=== PATIENT | female | born 1985 | race Caucasian/White ===

== ENCOUNTER 2018-03-02 10:50 | Day surgery (SDC) | payer OTHER ==
[~2018-03-02 10:50] MED LIST: Lactated Ringers 1,000 ML IV SCH; Lidocaine 2% 5 ML SDV ONE; Propofol 200 MG/20 ML SDV ONE
--- NOTE | 2018-03-02 11:17 | PCM.PREANE ---
Preanesthetic Assessment - Anesthesia/Transfusion/Family Hx Anesthesia History: Prior Anesthesia Without Reaction Family History of Anesthesia Reaction: No Transfusion History: No Prior Transfusion(s) Intubation History: Unknown - Review of Systems General: No Symptoms Pulmonary: No Symptoms Cardiovascular: No Symptoms Gastrointestinal: Abdominal Pain (epigastric), Other (IgG gliadin test positive) Neurological: No Symptoms Other: Reports: None - Physical Assessment Height: 1.6 m Weight: 62.142 kg ASA Class: 2 Mental Status: Alert & Oriented x3 Airway Class: Mallampati = 1 Dentition: Reports: Normal Dentition Thyro-Mental Finger Breadths: 3 Mouth Opening Finger Breadths: 3 ROM/Head Extension: Full Lungs: Clear to Auscultation, Normal Respiratory Effort Cardiovascular: Regular Rate, Regular Rhythm - Allergies Allergies/Adverse Reactions: Allergies Allergy/AdvReac Type Severity Reaction Status Date / Time codeine Allergy panic Verified 02/27/18 10:20 attacks - Blood Blood Available: No - Anesthesia Plan Pre-Op Medication Ordered: None - Acknowledgements Anesthesia Type Planned: MAC Pt an Appropriate Candidate for the Planned Anesthesia: Yes Alternatives and Risks of Anesthesia Discussed w Pt/Guardian: Yes Pt/Guardian Understands and Agrees with Anesthesia Plan: Yes PreAnesthesia Questionnaire HEENT History: Reports: Other (See Below) Other HEENT History: wears glasses Gastrointestinal History: Reports: Gastritis, GERD Genitourinary History: Reports: UTI, Recurrent Other Genitourinary History: UTI's in the past BIT SETTER History: Reports: , Spontaneous Neurological History: Reports: Migraines Hematologic History: Reports: Other (See Below) Other Hematologic History: hemorraged after vaginal deliveries but did not need transfusions - Past Surgical History Head Surgeries/Procedures: Reports: None GI Surgical History: Reports: Cholecystectomy Female Surgical History: Reports: D&C - SUBSTANCE USE Smoking Status *Q: Never Smoker Recreational Drug Use History: No - HOME MEDS Home Medications: Home Meds Calcium Carbonate [Tums] 1 tab.chew CHEW ASDIRECTED PRN 02/27/18 [History] - CURRENT (IN HOUSE) MEDS Current Meds: Current Medications Lactated Ringer's (Ringers, Lactated) 1,000 mls @ 125 mls/hr IV ASDIRECTED GERDA Discontinued Medications Lidocaine (Xylocaine-Mpf 2%) Confirm Administered Dose 5 ml .ROUTE .STK-MED ONE Stop: 03/02/18 07:38 Propofol (Diprivan 20 Ml) Confirm Administered Dose 400 mg .ROUTE .STK-MED ONE Stop: 03/02/18 07:39
--- NOTE | 2018-03-02 12:36 | PCM.OPNOTE ---
- General Post-Op/Procedure Note Date of Surgery/Procedure: 03/02/18 Operative Procedure(s): egd w duodenum bx Findings: see dict [id number] Pre Op Diagnosis: abd pain and food intolerence Post-Op Diagnosis: Same Anesthesia Technique: Moderate Sedation Primary Surgeon: Ludwin Conner Pathology: duodenum bx for celiac dz; stomach bx for hpylori Complications: None Condition: Good
--- NOTE | 2018-03-02 13:11 | PCM48HPAN ---
Post Anesthesia Note - EVALUATION WITHIN 48HRS OF ANESTHETIC Vital Signs in Normal Range: Yes Patient Participated in Evaluation: Yes Respiratory Function Stable: Yes Airway Patent: Yes Cardiovascular Function Stable: Yes Hydration Status Stable: Yes Pain Control Satisfactory: Yes Nausea and Vomiting Control Satisfactory: Yes Mental Status Recovered: Yes Resp Rate: 12
--- NOTE | 2018-03-02 14:28 | OR ---
SURGEON: Ludwin Conner MD DATE OF PROCEDURE: 03/02/2018 PREOPERATIVE DIAGNOSES: Abdominal pain and food intolerance. POSTOPERATIVE DIAGNOSES: Abdominal pain and food intolerance. PROCEDURE PERFORMED: Esophagogastroduodenoscopy with duodenal biopsy for celiac disease. COMPLICATIONS: None. PROCEDURE IN DETAIL: EGD: The patient was taken to the endoscopy room, and with the HEALTH CARE TECHNICIAN, Diprivan was administered. A well-lubricated EGD scope was gently inserted through the oropharynx, down the esophagus, passing through the gastroesophageal junction, into the stomach. The mucosa was examined upon the passage. Any etiology will be noted. Once in the stomach, we continued to advance to the distal antrum, passed through the pylorus into the second portion of the duodenum. Again, the mucosa was examined for any abnormality and etiology. The scope was then retrieved back to the stomach and then retroflexed to look at the fundus of the stomach. If a biopsy was indicated, we will biopsy the antrum, body, and gastroesophageal junction. The air will be sucked out while the scope is retrieved to reduce the patient's discomfort. The patient tolerated the procedure well. There were no intraoperative complications. Dr. Conner was present through the whole procedure. Prior to surgery, a time-out had been called, the patient identified, procedure identified and antibiotic administered. FINDINGS: 1. The patient is easily sedated with HEALTH CARE TECHNICIAN and Diprivan. The patient is soundly snoring. 2. Oropharynx and proximal esophagus are free of disease and distal esophagus at 40 shows mild salmon-colored change consistent with acid reflux, and stomach rugae is normal in appearance and there is some food particle in the stomach and there is no food residue over this food particle. Antrum is a little bit inflamed and duodenum was grossly normal in appearance. but is very fragile, and scope turn around it would bleed. Three random biopsies and duodenum and sent for pathology to check for celiac disease and biopsy done at antrum and body. Retroflexed look at the fundus of stomach, there is no hiatal hernia. Sucked out the air while scope pulling out. The patient would be helpful to be on some PPI for 6 weeks. We will discuss that in return office visit. RICARDO / ATUL /[id number] TRACEY
== END 2018-03-02 13:30 | disposition home or self-care (01) ==
LOC: MW.SDS 10:50
PROVIDERS: ATTEND Surgery
DX: R10.9 Unspecified abdominal pain (principal); K29.50 Unspecified chronic gastritis without bleeding; K29.80 Duodenitis without bleeding; K90.49 Malabsorption due to intolerance, not elsewhere classified; K21.9 Gastro-esophageal reflux disease without esophagitis; Z88.5 Allergy status to narcotic agent
CPT/HCPCS: 81025; J2704

== ENCOUNTER 2020-06-16 05:33 | Emergency (ER) | payer OTHER ==
[2020-06-16] MEDS ORDERED: ALPRAZolam 0.25 MG Tab PO ONE (05:56)
--- NOTE | 2020-06-16 06:03 | EDM.PDOC ---
<Lonnie Kennedy - Last Filed: 06/16/20 07:02> ED HPI GENERAL MEDICAL PROBLEM - General Chief Complaint: Chest Pain Stated Complaint: CHEST PAIN, BACK PAIN, HARD TO BREATHE Time Seen by Provider: 06/16/20 05:44 - History of Present Illness INITIAL COMMENTS - FREE TEXT/NARRATIVE: CHIEF COMPLAINT(S): Chest pressure HISTORY OF PRESENT ILLNESS: This is a 34-year-old man with a recent dental infection on amoxicillin who comes to the emergency department with a chief complaint of chest pressure. The patient states that approximately 1 hour prior to arrival she started to experience chest pressure in the center and left side of her chest. She states that she got up to see if it would go away however it worsened and she started to feel short of breath and it going to her arm. She denied any diaphoresis, nausea or vomiting. She denies any history of CAD. She states that she was tested for coronavirus today but does not know if she has any exposures. She denies any cough. She denies any prior history of DVT or PE or recent travel or surgery. She states that her mother does have CAD and CHF and her age is 55. There is no sudden onset at young age. She states that she did take a Percocet at approximately 3 AM for her mouth pain. She denies any other symptoms. She states that she does have an allergy to codeine and it is similar to what she is experiencing right now. REVIEW OF SYSTEMS: Constitutional: Denies fever, chills. Eyes: Denies eye pain Ears, Nose, Mouth, & Throat: Denies earache Cardiovascular: Positive for chest pressure respiratory: Positive for shortness of breath Gastrointestinal: Denies Nausea, vomiting, diarrhea, hematochezia. Genitourinary: Denies hematuria Skin:Denies a rash Neurological: Denies blurred vision Psychiatric: Denies depression PAST MEDICAL HISTORY: As per history of present illness and as reviewed below otherwise noncontributory. SURGICAL HISTORY: As per history of present illness and as reviewed below otherwise noncontributory. LMP: June 04, 2020 SOCIAL HISTORY: As per history of present illness and as reviewed below otherwise noncontributory. FAMILY HISTORY: As per history of present illness and as reviewed below otherwise noncontributory. EXAMINATION OF ORGAN SYSTEMS/BODY AREAS: Constitutional: Blood pressure is 133/95, heart rate 98, respiratory rate 17 with an oxygen saturation 1% on room air. Temperature 36.1 General: Overall well-appearing woman who is in no acute distress Psychiatric: appears anxious Eyes: No scleral icterus or conjunctival erythema ENMT: Moist mucous membranes. No pharyngeal erythema Cardiovascular: Regular, rate, and rythym. No gallops, murmurs, or rubs. Bilateral upper extremity pulses symmetric and intact. No peripheral edema. No JVD. Respiratory: Lungs clear to auscultation bilaterally. No wheezes, rales, or rhonchi. Gastrointestinal: Soft, non-tender, non-distended. Normoactive bowel sounds Genitourinary: No suprapubic tenderness Musculoskeletal: Normal range of motion. Skin: No lesions or abrasions. Neurological: Alert, GCS 15 MEDICAL DECISION MAKING AND COURSE IN THE ED WITH INTERPRETATION/REVIEW OF DIAGNOSTIC STUDIES: This is a 34-year-old woman with a past medical history of recent dental infection who comes to the emergency department with acute onset left-sided chest pressure with radiation to her arm associated with shortness of breath. EKG was obtained which did not reveal any acute signs of ischemia. At this time this is typical chest pain will obtain a cardiac work-up even though the patient is young. I do believe this is likely secondary to panic attack as she was taking Percocet and her prior codeine allergy reads panic attack. Will provide the patient with Xanax 0.25 mg by mouth. Twelve-lead EKG interpreted by myself. Normal sinus rhythm at a rate of 130beats per minute. Normal axis. [place] interval is 130ms. QRS duration is 92ms. ST segments are normal without elevations or depressions. No Q waves present. Hypertrophy not noted. No prior EKGs in our system there is an inverted T wave in lead III. Interpretation: Normal sinus rhythm with nonspecific T wave inversion Laboratory: CBC is negative. BMP is unremarkable. Troponin is negative. Coags are within normal limits. The radiological images were viewed by myself along with reading the report from the radiologist. Chest x-ray reveals a possible right infrahilar infiltrate versus normal vascular crowding. Otherwise no acute cardiopulmonary process. Given that the patient has no cough or fever there is no indication for antibiotics at this time given the incidental finding on chest x-ray. On reevaluation, the patient stated that her pain and pressure had improved. At this time I discussed with her that we would need to repeat a troponin. [facility] pending repeat troponin DISPOSITION: Patient was signed out to Dr. Tripp pending repeat troponin PROCEDURES: None FINAL IMPRESSION(S)/DIAGNOSES: 1. Acute chest pain Lonnie Kennedy M.D. 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: , Spontaneous Neurological History: Reports: Migraines Hematologic History: Reports: Other (See Below) Other Hematologic History: hemorraged after vaginal deliveries but did not need transfusions - Past Surgical History Head Surgeries/Procedures: Reports: None GI Surgical History: Reports: Cholecystectomy Female Surgical History: Reports: D&C ED ROS GENERAL - Review of Systems Review Of Systems: See Below ED EXAM, GENERAL - Physical Exam Exam: See Below Departure - Departure Disposition: Home, Self-Care 01 Clinical Impression: Chest pain - Discharge Information Instructions: Nonspecific Chest Pain, Adult Referrals: Junie Higginbotham DO [Primary Care Provider] - Forms: ED Department Discharge Additional Instructions: The following information is given to patients seen in the emergency department who are being discharged to home. This information is to outline your options for follow-up care. We provide all patients seen in our emergency department with a follow-up referral. The need for follow-up, as well as the timing and circumstances, are variable depending upon the specifics of your emergency department visit. If you don't have a primary care physician on staff, we will provide you with a referral. We always advise you to contact your personal physician following an emergency department visit to inform them of the circumstance of the visit and for follow-up with them and/or the need for any referrals to a consulting specialist. The emergency department will also refer you to a specialist when appropriate. This referral assures that you have the opportunity for follow-up care with a specialist. All of these measure are taken in an effort to provide you with optimal care, which includes your follow-up. Under all circumstances we always encourage you to contact your private physician who remains a resource for coordinating your care. When calling for follow-up care, please make the office aware that this follow-up is from your recent emergency room visit. If for any reason you are refused follow-up, please contact the [facility] Emergency Department at and asked to speak to the emergency department charge nurse. Sepsis Event Note (ED) - Evaluation Sepsis Screening Result: No Definite Risk <Mauricio Tripp - Last Filed: 06/16/20 09:06> EKG INTERPRETATION EKG Interpretation Comments: Repeat EKG was obtained at 8 AM the EKG is normal sinus rhythm rate of 70 bpm normal intervals normal axis normal EKG no ischemia. Read and interpreted by me Course - Vital Signs Text/Narrative:: 9 AM the patient was reassessed she is currently pain-free the repeat EKG was normal repeat troponin was negative she will be discharged home follow-up with her primary care doctor return to the ED for recurrent severe chest pain. Last Recorded V/S: Last Vital Signs Temp 36.1 C 06/16/20 05:55 Pulse 98 06/16/20 05:55 Resp 17 06/16/20 05:55 BP 133/95 H 06/16/20 05:55 Pulse Ox 100 06/16/20 05:55 - Orders/Labs/Meds Orders: Active Orders 24 hr Category Date Time Status Cardiac Monitoring [RC] . DIRECTED Care 06/16/20 05:52 Active EKG Documentation Completion [RC] STAT Care 06/16/20 05:52 Active Pulse Oximetry [RC] ASDIRECTED Care 06/16/20 05:52 Active Labs: Laboratory Tests 06/16/20 06/16/20 06/16/20 Range/Units 05:40 05:40 05:40 WBC 10.58 (4.0-11.0) K/uL RBC 4.78 (4.30-5.90) M/uL Hgb 14.5 (12.0-16.0) g/dL Hct 43.0 (36.0-46.0) % MCV 90.0 (80.0-98.0) fL MCH 30.3 (27.0-32.0) pg MCHC 33.7 (31.0-37.0) g/dL RDW Std Deviation 40.9 (28.0-62.0) fl RDW Coeff of Yomaira 12 (11.0-15.0) % Plt Count 250 (150-400) K/uL MPV 10.40 (7.40-12.00) fL Neut % (Auto) 60.0 (48.0-80.0) % Lymph % (Auto) 30.7 (16.0-40.0) % [place] % (Auto) 7.1 (0.0-15.0) % Eos % (Auto) 1.6 (0.0-7.0) % Baso % (Auto) 0.6 (0.0-1.5) % Neut # (Auto) 6.4 H (1.4-5.7) K/uL Lymph # (Auto) 3.3 H (0.6-2.4) K/uL [place] # (Auto) 0.8 (0.0-0.8) K/uL Eos # (Auto) 0.2 (0.0-0.7) K/uL Baso # (Auto) 0.1 (0.0-0.1) K/uL Nucleated RBC % 0.0 /100WBC Nucleated RBCs # 0 K/uL INR 1.03 Sodium 139 (136-145) mmol/L Potassium 3.6 (3.5-5.1) mmol/L Chloride 102 (98-107) mmol/L Carbon Dioxide 28.7 (21.0-32.0) mmol/L BUN 9 (7.0-18.0) mg/dL Creatinine 0.8 (0.6-1.0) mg/dL Est Cr Clr Drug Dosing 81.97 mL/min Estimated GFR (MDRD) > 60.0 ml/min Glucose 101 (74-106) mg/dL Calcium 9.0 (8.5-10.1) mg/dL Magnesium 2.1 (1.8-2.4) mg/dL Troponin I < 0.050 (0.000-0.056) ng/mL HCG, Qual (NEG) 06/16/20 06/16/20 Range/Units 05:40 08:20 WBC (4.0-11.0) K/uL RBC (4.30-5.90) M/uL Hgb (12.0-16.0) g/dL Hct (36.0-46.0) % MCV (80.0-98.0) fL MCH (27.0-32.0) pg MCHC (31.0-37.0) g/dL RDW Std Deviation (28.0-62.0) fl RDW Coeff of Yomaira (11.0-15.0) % Plt Count (150-400) K/uL MPV (7.40-12.00) fL Neut % (Auto) (48.0-80.0) % Lymph % (Auto) (16.0-40.0) % [place] % (Auto) (0.0-15.0) % Eos % (Auto) (0.0-7.0) % Baso % (Auto) (0.0-1.5) % Neut # (Auto) (1.4-5.7) K/uL Lymph # (Auto) (0.6-2.4) K/uL [place] # (Auto) (0.0-0.8) K/uL Eos # (Auto) (0.0-0.7) K/uL Baso # (Auto) (0.0-0.1) K/uL Nucleated RBC % /100WBC Nucleated RBCs # K/uL INR Sodium (136-145) mmol/L Potassium (3.5-5.1) mmol/L Chloride (98-107) mmol/L Carbon Dioxide (21.0-32.0) mmol/L BUN (7.0-18.0) mg/dL Creatinine (0.6-1.0) mg/dL Est Cr Clr Drug Dosing mL/min Estimated GFR (MDRD) ml/min Glucose (74-106) mg/dL Calcium (8.5-10.1) mg/dL Magnesium (1.8-2.4) mg/dL Troponin I < 0.050 (0.000-0.056) ng/mL HCG, Qual NEGATIVE (NEG) Meds: Medications Discontinued Medications Generic Name Dose Route Start Last Admin Trade Name Freq PRN Reason Stop Dose Admin Alprazolam 0.25 mg 06/16/20 05:56 06/16/20 06:13 Xanax PO 06/16/20 05:57 0.25 mg ONETIME ONE Administration Departure - Departure Time of Disposition: 09:05 Condition: Good - Discharge Information *PRESCRIPTION DRUG MONITORING PROGRAM REVIEWED*: Not Applicable *COPY OF PRESCRIPTION DRUG MONITORING REPORT IN PATIENT KOLE: Not Applicable Sepsis Event Note (ED) - Focused Exam Vital Signs: Vital Signs Temp Pulse Resp BP BP Pulse Ox 06/16/20 05:55 36.1 C 98 17 133/95 H 130/87 100
--- NOTE | 2020-06-16 06:14 | CR ---
INDICATION: Chest pain TECHNIQUE: Chest 1 view COMPARISON: None FINDINGS: Cardiovascular and mediastinum: Heart size and vasculature are normal in caliber and appearance. Lungs and pleural spaces: Questionable right infrahilar infiltrate versus vascular crowding. Remainder of the lungs and pleural spaces are clear. Bones and soft tissues: No significant findings. IMPRESSION: Possible right infrahilar infiltrate versus normal vascular crowding. Remainder of the chest is unremarkable. Dictated by Florentin Myers MD @ Jun 16 2020 6:11AM Signed by Dr. Florentin Myers @ Jun 16 2020 6:13AM
[2020-06-16 06:36] LABS: BLOOD UREA NITROGEN,BUN 9 mg/dL (7.0-18.0); CARBON DIOXIDE,CO2 28.7 mmol/L (21.0-32.0); CHLORIDE,CL 102 mmol/L (98-107); GLUCOSE RANDOM 101 mg/dL (74-106); POTASSIUM,K 3.6 mmol/L (3.5-5.1); SODIUM,NA 139 mmol/L (136-145)
== END 2020-06-16 09:18 | disposition home or self-care (01) ==
LOC: MW.ED 05:33
DX: R07.89 Other chest pain (principal); Z88.5 Allergy status to narcotic agent; Z87.440 Personal history of urinary (tract) infections; Z90.49 Acquired absence of other specified parts of digestive tract
CPT/HCPCS: 36415; 71045; 80048; 83735; 84484; 84703; 85025; 85610; 93005; 99285; A9270; 93010; 99284